=== PATIENT | female | born 1945 | race Caucasian/White ===

== ENCOUNTER 2020-08-14 01:21 | Emergency (ER) | payer MEDICARE, BC ==
[~2020-08-14] VITALS: Ht 147.3 cm; Wt 63.2 kg
--- NOTE | 2020-08-14 01:43 | NUR ---
DR GARCIA AT BEDSIDE TO ASSESS PATIENT C SPINE REOVED BY
--- NOTE | 2020-08-14 01:53 | NUR ---
pt to ct with self defense instructor
--- NOTE | 2020-08-14 02:03 | NUR ---
PT BACK FROM CT
--- NOTE | 2020-08-14 02:22 | NUR ---
report called to lesa of [facility].
--- NOTE | 2020-08-14 02:36 | NUR ---
pt awaiting transport.
[2020-08-14 03:23] VITALS: BP 124/70
== END 2020-08-14 03:15 | disposition home or self-care (01) ==
LOC: ER 01:22
DX: R51.9 Headache, unspecified (principal); W18.30XA Fall on same level, unspecified, initial encounter; Y93.89 Activity, other specified; Y99.8 Other external cause status; Y92.238 Other place in hospital as the place of occurrence of the external cause
CPT/HCPCS: 70450; 99284

== ENCOUNTER 2020-09-08 06:03 | Emergency (ER) | payer MEDICARE, BC ==
[~2020-09-08] VITALS: Ht 144.8 cm; Wt 70.0 kg
--- NOTE | 2020-09-08 07:54 | NUR ---
Report given to Jes at [facility] and pt to be DC back to facility.
--- NOTE | 2020-09-08 07:57 | NUR ---
Pt family Janice Hernandez contacted and updated on pt status. Inquired on transport for pt and informed to use [facility] [employer].
--- NOTE | 2020-09-08 08:00 | NUR ---
[facility] to [facility]er pt in approx 30-45min
[2020-09-08 08:34] VITALS: BP 153/84
== END 2020-09-08 08:45 | disposition home or self-care (01) ==
LOC: ER 06:03
DX: S00.01XA Abrasion of scalp, initial encounter (principal); S09.90XA Unspecified injury of head, initial encounter; F03.90 Unspecified dementia, unspecified severity, without behavioral disturbance, psychotic disturbance, mood disturbance, and anxiety; W19.XXXA Unspecified fall, initial encounter; Y93.89 Activity, other specified; Y99.8 Other external cause status
CPT/HCPCS: 70450; 72125; 99285

== ENCOUNTER 2021-06-29 20:27 | Emergency (ER) | payer MEDICARE, BC ==
[2021-06-29] MEDS ORDERED: normal saline 1000ML IV soln IVB ONE (22:10)
[2021-06-29 22:29] VITALS: BP 112/58
[2021-06-29 23:06] LABS: BASOPHILS % (AUTO) 0.4 % (0-1); EOSINOPHILS # (AUTO) 0.2 X10'3 (0-0.9); EOSINOPHILS % (AUTO) 2.1 % (0-6); HEMATOCRIT 37.9 % (35.0-45.0); HEMOGLOBIN 12.6 g/dl (12.0-16.0); LYMPHOCYTES # (AUTO) 2.3 X10'3 (1.1-4.8); LYMPHOCYTES % (AUTO) 26.6 % (21-51); MEAN CORPUSCULAR HEMOGLOBIN 30.6 PG (27.0-31.0); MEAN CORPUSCULAR HGB CONC 33.1 g/dL (33.0-36.5); MEAN CORPUSCULAR VOLUME 92.3 FL (78-98); MEAN PLATELET VOLUME 8.3 FL (7.4-10.4); MONOCYTES # (AUTO) 0.7 X10'3 (0-0.9); MONOCYTES % (AUTO) 7.9 % (2-12); NEUTROPHILS # (AUTO) 5.3 X10'3 (1.8-7.7); PLATELET COUNT 197 X10'3 (140-440); RED BLOOD COUNT 4.11 X10'6 (4.20-5.60); WHITE BLOOD COUNT 8.5 X10'3 (4.5-11.0)
--- NOTE | 2021-06-29 23:07 | NUR ---
STRAIGHT CATH. PT WITH 835 CC'S OUT. WAS WEARING A DRY PULL UP. PT IS UNABLE TO TELL ME ABOUT HER URINATION TODAY D/T DIMENTIA. MIRELA POSEY UPDATED.
[2021-06-29] MEDS ORDERED: acetaminophen 325mg tablet PO ONE (23:15)
[2021-06-29 23:21] LABS: PARTIAL THROMBOPLASTIN TIME 24 SECONDS (22-32)
[2021-06-29 23:35] LABS: ALANINE AMINOTRANSFERASE 6 U/L (12-78); ALBUMIN 3.6 G/DL (3.4-5.0); ALBUMIN/GLOBULIN RATIO 1.1 (1.1-1.5); ALKALINE PHOSPHATASE 70 IU/L (46-116); ANION GAP 5 (8-16); ASPARTATE AMINO TRANSFERASE 12 U/L (10-37); BILIRUBIN,TOTAL 0.3 MG/DL (0.1-1.0); BLOOD UREA NITROGEN 18 MG/DL (7-18); CALCIUM 9.2 MG/DL (8.5-10.1); CHLORIDE 107 MMOL/L (99-107); CREATININE 1.06 MG/DL (0.40-0.90); GLUCOSE 98 MG/DL (70-104); MAGNESIUM 2.1 MG/DL (1.5-2.4); POTASSIUM 4.1 MMOL/L (3.5-5.1); SODIUM 142 MMOL/L (135-145); TOTAL CARBON DIOXIDE 29.7 MMOL/L (24-32); eGFR 51 ML/MIN
[2021-06-29 23:44] LABS: UA COLLECTION TYPE STRAIGHT CATH
[2021-06-29 23:45] LABS: CLARITY,URINE CLEAR (Clear); COLOR,URINE YELLOW (Yellow); GLUCOSE, URINE NEGATIVE (Neg); KETONES,URINE NEGATIVE (Neg); PROTEIN,URINE NEGATIVE (Neg)
[2021-06-29 23:46] LABS: LEUKOCYTE ESTERASE ,URINE NEGATIVE (Neg); NITRITES, URINE NEGATIVE (Neg); OCCULT BLOOD,URINE NEGATIVE (Neg); UROBILINOGEN,URINE 0.2 E.U/dL (0.2-1.0)
--- NOTE | 2021-06-30 00:40 | NUR ---
PT OFF TO CT
== END 2021-06-30 02:58 | disposition home or self-care (01) ==
LOC: ER 20:27
DX: S80.212A Abrasion, left knee, initial encounter (principal); S80.812A Abrasion, left lower leg, initial encounter; F03.91 Unspecified dementia, unspecified severity, with behavioral disturbance; Z98.891 History of uterine scar from previous surgery; W01.0XXA Fall on same level from slipping, tripping and stumbling without subsequent striking against object, initial encounter; Y93.89 Activity, other specified; Y92.89 Other specified places as the place of occurrence of the external cause; Y99.8 Other external cause status
CPT/HCPCS: 36415; 70450; 71045; 72125; 80053; 81003; 83735; 84484; 85025; 85610; 85730; 96360; 99285; J7030; 93005

== ENCOUNTER 2022-03-03 04:57 | Emergency (ER) | payer MEDICARE, BC ==
[~2022-03-03] VITALS: Ht 152.4 cm; Wt 61.8 kg
[2022-03-03 05:26] VITALS: BP 130/61
== END 2022-03-03 08:49 ==
LOC: ER 04:58
DX: F03.90 Unspecified dementia, unspecified severity, without behavioral disturbance, psychotic disturbance, mood disturbance, and anxiety (principal); Z53.21 Procedure and treatment not carried out due to patient leaving prior to being seen by health care provider

== ENCOUNTER 2022-12-31 08:11 | Emergency (ER) | payer MEDICARE, BC ==
[~2022-12-31] VITALS: Ht 152.4 cm; Wt 54.5 kg
[2022-12-31 08:15] VITALS: BP 90/69
[2022-12-31] MEDS ORDERED: bacitracin 15gm ointment TP ONE (09:05)
--- NOTE | 2022-12-31 09:07 | NUR ---
DR FONTAINE INTENDS TO DC PT, CALL PLACED TO [facility] TO ARRANGE TRANSPORT BACK TO FACILITY SPOKE WITH [employer] ON THE WAY ETA 20 MINUTES
== END 2022-12-31 10:01 | disposition home or self-care (01) ==
LOC: ER 08:12
DX: S00.31XA Abrasion of nose, initial encounter (principal); F03.90 Unspecified dementia, unspecified severity, without behavioral disturbance, psychotic disturbance, mood disturbance, and anxiety; Z98.890 Other specified postprocedural states; V98.8XXA Other specified transport accidents, initial encounter; Y93.89 Activity, other specified; Y92.89 Other specified places as the place of occurrence of the external cause; Y99.8 Other external cause status
CPT/HCPCS: 70450; 70486; 72125; 99284

== ENCOUNTER 2023-06-07 07:42 | Inpatient (IN) | payer MEDICARE, BC ==
[~2023-06-07] VITALS: Ht 144.8 cm; Wt 53.0 kg
--- NOTE | 2023-06-07 07:50 | NUR ---
To ct via gurney at this time with RN.
--- NOTE | 2023-06-07 08:11 | NUR ---
STROKE RN AT BEDSIDE. THIS RN WILL CALL MILADY ARRIAGA AND CONFIRM THE TIME PT WAS LAST SEEN NORMAL.
[2023-06-07 08:20] LABS: BASOPHILS % (AUTO) 0.3 % (0-1); EOSINOPHILS # (AUTO) 0.1 X10'3 (0-0.9); EOSINOPHILS % (AUTO) 0.5 % (0-6); HEMATOCRIT 38.2 % (35.0-45.0); HEMOGLOBIN 12.6 g/dl (12.0-16.0); LYMPHOCYTES # (AUTO) 1.2 X10'3 (1.1-4.8); LYMPHOCYTES % (AUTO) 11.4 % (21-51); MEAN CORPUSCULAR HEMOGLOBIN 30.8 PG (27.0-31.0); MEAN CORPUSCULAR HGB CONC 33.1 g/dL (33.0-36.5); MEAN CORPUSCULAR VOLUME 93.2 FL (78-98); MEAN PLATELET VOLUME 9.2 FL (7.4-10.4); MONOCYTES # (AUTO) 0.8 X10'3 (0-0.9); MONOCYTES % (AUTO) 7.3 % (2-12); NEUTROPHILS # (AUTO) 8.7 X10'3 (1.8-7.7); NEUTROPHILS % (AUTO) 80.5 % (42-75); PLATELET COUNT 199 X10'3 (140-440); RED CELL DISTRIBUTION WIDTH 12.9 % (11.5-14.5); WHITE BLOOD COUNT 10.8 X10'3 (4.5-11.0)
--- NOTE | 2023-06-07 08:20 | NUR ---
PER INGA AT [facility], LAST WELL TIME WAS DURING MED PASS AT 0650 WHEN PT WAS ABLE TO TALK AND TAKE MEDS USUAL. PT CANNOT WALK AT BASELINE, ONLY BEAR WEIGHT FOR TRANSFERS
[2023-06-07 08:29] LABS: APTT 25 SECONDS (22-32); INR 1.1 INR; PROTHROMBIN TIME 11.8 SECONDS (9.0-12.0)
[2023-06-07] MEDS ORDERED: iohexol 350MG/ML 100ml bottle IV ONE (08:52)
--- NOTE | 2023-06-07 09:00 | NUR ---
PT TAKEN FOR CTA WITH DEIRDRE MORALEZ
--- NOTE | 2023-06-07 09:21 | NUR ---
PER DEIRDRE MORALEZ STROKE RN DO UPDATED NEURO ASSESSMENT NOW AND THEN Q4 HRS
--- NOTE | 2023-06-07 09:22 | NUR ---
PER DEIRDRE RN STROKE RN ALLOW ST TO DO SWALLOW SCREEN D/T PT HAS HX OF PARKINSONS.
--- NOTE | 2023-06-07 09:22 | NUR ---
PRESSURE AREA NOTED TO SACRUM. RN TOOK PIC AND PLACED IN CHART. WOUND CARE CONSULT ORD.
[2023-06-07 09:33] LABS: BLOOD UREA NITROGEN 19 MG/DL (7-18); BUN/CREATININE RATIO 19.8 (10.0-20.0); CHLORIDE 108 MMOL/L (99-107); CREATININE 0.96 MG/DL (0.40-0.90); GLUCOSE 141 MG/DL (70-104); POTASSIUM 3.6 MMOL/L (3.5-5.1); SODIUM 143 MMOL/L (135-145); eCRCL 37 ML/MIN; eGFR 56 ML/MIN
[2023-06-07 09:38] LABS: ALBUMIN 3.5 G/DL (3.4-5.0); ALBUMIN/GLOBULIN RATIO 1.1 (1.1-1.5); ALKALINE PHOSPHATASE 54 IU/L (46-116); ANION GAP 10 (8-16); ASPARTATE AMINO TRANSFERASE 15 U/L (10-37); BILIRUBIN,TOTAL 0.7 MG/DL (0.1-1.0); CALCIUM 9.1 MG/DL (8.5-10.1); TOTAL CARBON DIOXIDE 25.4 MMOL/L (24-32); TOTAL PROTEIN 6.7 G/DL (6.4-8.2)
--- NOTE | 2023-06-07 09:39 | NUR ---
PT DAUGHTERS CHRISTELLE AND NO ARE AT BEDSIDE AND PROVIDED PT HX AND CONFIRMED NKA. PER NO GERBER SHE WOULD LIKE TO SPEAK TO DR ABOUT CODE STATUS. RN WILL NOTIFY
[2023-06-07 09:45] LABS: ALANINE AMINOTRANSFERASE 7 U/L (12-78)
--- NOTE | 2023-06-07 10:28 | NUR ---
PT HAS PRESSURE AREA TO SACRUM. PT TURNED TO LEFT SIDE.
--- NOTE | 2023-06-07 10:29 | NUR ---
PER DR HUFFMAN PT WILL BE ADM FOR FURTHER TESTING TO R/O CVA. RN NOTIFIED RELIEF CHARGE NURSE CORAL THAT PER DEIRDRE NEURO CKS Q4 HRS/PT CHG TO LEVEL 2. RN WILL NOTIFY HOSPITALIST THAT PT ZABRINA SARABIA WOULD LIKE TO SPEAK TO DR ABOUT CODE STATUS. RN EDUCATED PT DAUGHTER THAT PT WOULD REMAIN A FULL CODE UNTIL SHE SPEAKS TO DR AND SHE AGREED AND VERBALIZED UNDERSTANDING.
[2023-06-07] MEDS ORDERED: magnesium Cl slow-release 64mg tablet PO PRN (11:15)
[2023-06-07] MEDS ORDERED: potassium Cl 40MEQ/1/2NS 520ml 520 ML IV PRN (11:15)
[2023-06-07] MEDS ORDERED: acetaminophen 325mg tablet PO PRN ×2 (11:15)
[2023-06-07] MEDS ORDERED: magnesium hydroxide 30ml (MOM) UD suspension PO PRN (11:15)
[2023-06-07] MEDS ORDERED: mag hydrox/Alum hydrox/simeth 30ml oral suspension PO PRN (11:15)
[2023-06-07] MEDS ORDERED: ondansetron/PF 4mg/2ml inj IV PRN (11:15)
[2023-06-07] MEDS ORDERED: magnesium 4gm in 100ml NS 100 ML IV PRN (11:15)
[2023-06-07] MEDS ORDERED: potassium Cl 20 mEq SR tablet PO PRN ×2 (11:15)
[2023-06-07] MEDS ORDERED: aspirin 81mg tab.chew PO ONE (11:15)
[2023-06-07] MEDS ORDERED: magnesium 2GM in 50ml NS 50 ML IV PRN (11:15)
--- NOTE | 2023-06-07 12:05 | NUR ---
RN COMPLETED MRI FORM WITH PT ZABRINA SARABIA/FAXED TO MRI/NOTIFIED MRI.
--- NOTE | 2023-06-07 12:19 | NUR ---
RN PAGED DR SANZ MESSAGE PT ZABRINA SARABIA/HER PH# WOULD LIKE TO SPEAK WITH HIM ABOUT PT CODE STATUS.
--- NOTE | 2023-06-07 12:28 | NUR ---
PT TAKEN FOR MRI
--- NOTE | 2023-06-07 12:30 | NUR ---
Patient in room PCU 3027. I have received report from vesta RN and had the opportunity to ask questions and assume patient care.
[2023-06-07] MEDS ORDERED: ESOM40CA54 PO (12:59)
[2023-06-07] MEDS ORDERED: DIVA125C10 PO (12:59)
[2023-06-07] MEDS ORDERED: DONE10TA44 PO (12:59)
[2023-06-07] MEDS ORDERED: CARB-313 PO (12:59)
[2023-06-07] MEDS ORDERED: QUET25TA36 PO (12:59)
[2023-06-07] MEDS ORDERED: BENA40TA45 PO (12:59)
--- NOTE | 2023-06-07 13:05 | NUR ---
PT WILL BE TRANSPORTED FROM MRI TO . MRI NOTIFIED. PT BELONGINGS AND CHART TAKEN TO FLOOR BY QUARTZ ORIENTATOR.
[2023-06-07] MEDS: normal saline 1000ml 1,000 ML IV SCH ×2 (13:53→21:38)
[2023-06-07 16:00] VITALS: RESP 16
[2023-06-07 17:29] VITALS: BP 139/55; PULSE 78; RESP 16; TEMP 98.5; O2SAT 95
--- NOTE | 2023-06-07 18:30 | NUR ---
Patient in room PCU 3027. I have received report from EVELYN and had the opportunity to ask questions and assume patient care.
--- NOTE | 2023-06-07 18:51 | NUR ---
Patient appears stable. Family present. Mostly sleeping but Rousable to voice but appears confused. patient had dementia and is resident of [facility]. Report given to Gemma MORALEZ
[2023-06-07 19:00] VITALS: BP 96/41; PULSE 58; RESP 16; TEMP 97.8; O2SAT 96
[2023-06-07] MEDS: docusate sod 100mg capsule PO SCH (20:00)
[2023-06-07] MEDS: K and/or MAG REPLACEMENT MC SCH (20:00)
[2023-06-07] MEDS ORDERED: QUEtiapine 25mg tablet PO SCH (20:00)
--- NOTE | 2023-06-07 20:45 | NUR ---
PT INCONTINENT SMALL AMOUNT OF URINE. BLADDER SCANNED FOR GREATER THAN 760ML. DR STATON NOTIFIED, ORDERS OBTAINED FOR STRAIGHT CATH AND A UA. UPON RETURNING TO PT ROOM, PT WAS FOUND TO HAVE VOIDED A LARGE INCONTINENT AMOUNT. BLADDER SCANNED AGAIN, STILL WITH 460ML OF URINE IN BLADDER. STRAIGHT CATH PERFORMED FOR 400 ML. PT TOLERATED WELL. UA SENT TO THE LAB.
[2023-06-07] MEDS ORDERED: donepezil 5mg tablet PO SCH (21:00)
[2023-06-07 21:27] LABS: BILIRUBIN,URINE NEGATIVE (Neg); CLARITY,URINE SLIGHTLY CLOUDY (Clear); COLOR,URINE YELLOW (Yellow); GLUCOSE, URINE NEGATIVE (Neg); KETONES,URINE NEGATIVE (Neg); LEUKOCYTE ESTERASE ,URINE NEGATIVE (Neg); NITRITES, URINE NEGATIVE (Neg); OCCULT BLOOD,URINE NEGATIVE (Neg); PROTEIN,URINE NEGATIVE (Neg); UROBILINOGEN,URINE 0.2 E.U/dL (0.2-1.0)
[2023-06-07 21:43] LABS: UA COLLECTION TYPE STRAIGHT CATH
[2023-06-07 21:45] LABS: WBC,URINE 0-4 /HPF (0-4)
[2023-06-07 21:46] LABS: AMORPHOUS URATES 1+; MUCUS STRANDS FEW /LPF (Neg); SQUAMOUS EPITHELIAL CELL,UR FEW /LPF (FEW)
[2023-06-07 21:49] LABS: BACTERIA,URINE 2+ /HPF (Neg)
[2023-06-07] MEDS: dextrose 5%-normal saline 1,000 ML IV SCH (21:55)
--- NOTE | 2023-06-07 21:59 | NUR ---
BLOOD GLUCOSE 68. PT CURRENTLY UNWILLING TO EAT OR DRINK. NO HYPOGLYCEMIA ORDERS AVAILABLE. DR STATON NOTIFIED OF ABOVE. ORDERS OBTAINED TO CHANGE IVF TO D5NS.
[2023-06-07 22:00] VITALS: BP 121/52; PULSE 67; RESP 14; TEMP 97.5; O2SAT 95
--- NOTE | 2023-06-07 22:00 | NUR ---
PT MORE ALERT. ENCOURAGED TO EAT A YOGURT. PT ABLE TO SWALLOW YOGURT WITH CRUSHED MEDS SAFELY. PT IS A FEEDER. PT REFUSED TO DRINK ANY WATER OR LIQUID.
[2023-06-07] MEDS: divalproex sod 125mg sprinkle cap PO SCH (22:01)
[2023-06-07] MEDS: carbidoba-levodopa 25-100mg tablet PO SCH (22:02)
[2023-06-07] MEDS: QUEtiapine 25mg tablet PO SCH (22:02)
[2023-06-08 02:00] VITALS: BP 102/45; PULSE 75; RESP 15; TEMP 97; O2SAT 95
[2023-06-08] MEDS: dextrose 5%-normal saline 1,000 ML IV SCH ×2 (05:17→15:13)
--- NOTE | 2023-06-08 06:08 | NUR ---
Problems reprioritized. Patient report given, questions answered & plan of care reviewed with JEFF.
--- NOTE | 2023-06-08 06:30 | NUR ---
Patient in room PCU 3027. I have received report from Gemma MORALEZ and had the opportunity to ask questions and assume patient care.
[2023-06-08 07:00] VITALS: BP 122/53; PULSE 63; RESP 14; TEMP 97.9; O2SAT 94
[2023-06-08 07:43] LABS: ALANINE AMINOTRANSFERASE < 6 U/L (12-78); ALBUMIN 2.7 G/DL (3.4-5.0); ALKALINE PHOSPHATASE 43 IU/L (46-116); ANION GAP 6 (8-16); ASPARTATE AMINO TRANSFERASE 13 U/L (10-37); BILIRUBIN,TOTAL 0.7 MG/DL (0.1-1.0); BLOOD UREA NITROGEN 11 MG/DL (7-18); BUN/CREATININE RATIO 11.7 (10.0-20.0); CALCIUM 8.3 MG/DL (8.5-10.1); CHLORIDE 112 MMOL/L (99-107); CREATININE 0.94 MG/DL (0.40-0.90); GLUCOSE 103 MG/DL (70-104); MAGNESIUM 1.6 MG/DL (1.5-2.4); POTASSIUM 3.7 MMOL/L (3.5-5.1); SODIUM 144 MMOL/L (135-145); TOTAL CARBON DIOXIDE 26.1 MMOL/L (24-32); TOTAL PROTEIN 5.4 G/DL (6.4-8.2); eCRCL 31 ML/MIN; eGFR 58 ML/MIN
[2023-06-08 08:00] VITALS: RESP 14; O2SAT 94
[2023-06-08] MEDS ORDERED: pantoprazole 40mg Tablet.DR PO SCH (08:00)
[2023-06-08] MEDS ORDERED: lisinopril 20mg tablet PO SCH (08:00)
[2023-06-08] MEDS: K and/or MAG REPLACEMENT MC SCH (08:00)
[2023-06-08] MEDS: docusate sod 100mg capsule PO SCH (08:00)
[2023-06-08 08:09] LABS: BASOPHILS % (AUTO) 0.4 % (0-1); EOSINOPHILS # (AUTO) 0.2 X10'3 (0-0.9); EOSINOPHILS % (AUTO) 2.6 % (0-6); HEMATOCRIT 32.6 % (35.0-45.0); LYMPHOCYTES # (AUTO) 1.7 X10'3 (1.1-4.8); LYMPHOCYTES % (AUTO) 25.1 % (21-51); MEAN CORPUSCULAR HEMOGLOBIN 31.5 PG (27.0-31.0); MEAN CORPUSCULAR HGB CONC 33.6 g/dL (33.0-36.5); MEAN CORPUSCULAR VOLUME 93.6 FL (78-98); MEAN PLATELET VOLUME 8.9 FL (7.4-10.4); MONOCYTES # (AUTO) 0.7 X10'3 (0-0.9); MONOCYTES % (AUTO) 9.6 % (2-12); NEUTROPHILS # (AUTO) 4.3 X10'3 (1.8-7.7); NEUTROPHILS % (AUTO) 62.3 % (42-75); PLATELET COUNT 170 X10'3 (140-440); RED BLOOD COUNT 3.49 X10'6 (4.20-5.60); WHITE BLOOD COUNT 6.9 X10'3 (4.5-11.0)
[2023-06-08] MEDS ORDERED: aspirin 81mg tab.chew PO SCH (08:30)
[2023-06-08] MEDS: carbidoba-levodopa 25-100mg tablet PO SCH ×2 (08:55→13:31)
[2023-06-08] MEDS: QUEtiapine 25mg tablet PO SCH (08:55)
[2023-06-08] MEDS: divalproex sod 125mg sprinkle cap PO SCH (08:55)
[2023-06-08 08:56] VITALS: BP_SYST 122
[2023-06-08 11:00] VITALS: PULSE 76; RESP 18; O2SAT 98
--- NOTE | 2023-06-08 11:01 | NUR ---
Paged EEG to complete EEG for DC.
--- NOTE | 2023-06-08 11:49 | NUR ---
Pt refused BP and temp for her vitals at 1100. I completed the other vitals information.
--- NOTE | 2023-06-08 14:03 | NUR ---
PAGER ID: [phone] MESSAGE: David [phone], Pt's EEG results are in. Let me know if she will be discharged or what we will be doing, thank you.
[2023-06-08] MEDS ORDERED: QUET25TA36 PO (14:43)
[2023-06-08] MEDS ORDERED: DIVA125C2 PO (14:43)
--- NOTE | 2023-06-08 16:15 | NUR ---
I called pt's daughter to update her on her mother's transfer back to her facility. We talked briefly but I had to answer another phone call but said I would call her back. I tried to call her back but did not get a hold of her. She was made aware of the fact that her mother was planned to be discharged back to her facility of [facility].
--- NOTE | 2023-06-08 17:14 | NUR ---
Pt was DC'd as per dr's orders. Pt unhooked from all IV and tele. Education was provided to pt, however pt is very confused and didn't understand what was happening. Pt was transferred to their facility at [facility]. Pt was wheeled down to the lobby in a wheelchair and left in a transport van destined for [facility].
== END 2023-06-08 16:48 | disposition home or self-care (01) | DRG 64 ==
LOC: ER 07:42 → ED HOLD 11:18 → PCU 3S 13:23
PROVIDERS: ADMIT Family Medicine; ATTEND Family Medicine
PROC: B3251ZZ Computerized Tomography (CT Scan) of Bilateral Common Carotid Arteries using Low Osmolar Contrast (ICD-10-PCS; 2023-06-07)
PROC: B32G1ZZ Computerized Tomography (CT Scan) of Bilateral Vertebral Arteries using Low Osmolar Contrast (ICD-10-PCS; 2023-06-07)
PROC: B32R1ZZ Computerized Tomography (CT Scan) of Intracranial Arteries using Low Osmolar Contrast (ICD-10-PCS; 2023-06-07)
PROC: B3281ZZ Computerized Tomography (CT Scan) of Bilateral Internal Carotid Arteries using Low Osmolar Contrast (ICD-10-PCS; 2023-06-07)
PROC: 4A00X4Z Measurement of Central Nervous Electrical Activity, External Approach (ICD-10-PCS; principal; 2023-06-08)
DX: I63.9 Cerebral infarction, unspecified (principal); G93.41 Metabolic encephalopathy; G20 Parkinson's disease; Z66 Do not resuscitate; G30.9 Alzheimer's disease, unspecified; R56.9 Unspecified convulsions; N18.9 Chronic kidney disease, unspecified; F02.80 Dementia in other diseases classified elsewhere, unspecified severity, without behavioral disturbance, psychotic disturbance, mood disturbance, and anxiety; Z99.3 Dependence on wheelchair; Z79.899 Other long term (current) drug therapy
CPT/HCPCS: 36415; 70450; 70496; 70498; 70551; 71045; 80053; 81001; 82948; 83735; 85025; 85610; 85730; 87081; 92508; 92616; 93005; 93306; 95816; 99285; A6213; C1758; G0378; J3490; J7030; J7042; Q9967